=== PATIENT | male | born 1950 | race Caucasian/White ===

== ENCOUNTER → 2017-01-10 | Outpatient (CLI) | payer BC ==
[~2017-01-10] MED LIST: ASPI325T60 PO; B-CO-25; CRDCD120 PO; CYAN100T6 PO; DEXA1TAB16 PO; ENOX100I SC; METO50TA17 PO; MULT-599 PO; NIVO1INJ; NIVO1INJ IV; WARF5TAB7 PO; WARF5TAB90 PO; [UNRECOGNIZED DRUG - CODE]
--- NOTE | 2017-01-10 13:59 | DIAGNOSTIC IMAGING REPORT ---
CT OF THE CHEST WITH IV CONTRAST CLINICAL HISTORY: Esophageal carcinoma. Follow-up study. COMPARISON STUDY: 10/19/2016 TECHNIQUE: Following the IV administration of 92 mL of Optiray-320, CT of the thorax was performed from the thoracic inlet to the lung bases. Images are reviewed in the axial, sagittal, and coronal planes. IV contrast was administered without complication. CT DOSE: FINDINGS: Thyroid: Imaged portions of the thyroid gland are normal in appearance. Thoracic aorta: The thoracic aorta is normal in course and caliber, noting standard 3-vessel arch anatomy. No aneurysm or dissection is seen. Pulmonary vasculature: There is a small right lower lobe pulmonary artery filling defect, consistent with an embolus. This was not visualized the preceding study. HEART: There are mild coronary artery calcifications present. Lungs and pleural spaces: No pleural effusions are visualized. There are dependent atelectatic changes. There is no focal pulmonary consolidation. No suspicious pulmonary masses are visualized. Mediastinum: There is no pathologic adenopathy. There are postsurgical changes of the esophagectomy and gastric pull-up Idalmis: There is no evidence of pathologic hilar lymphadenopathy Axilla: Clear. Upper abdomen: There is a 16 mm right adrenal nodule. This was not visualized the prior study. Skeletal structures: There are no lytic or blastic osseous lesions. IMPRESSION: 1. Postsurgical changes of an esophagectomy and gastric pull-up 2. No evidence of pathologic adenopathy by size criteria 3. Interval development of a small right lower lobe pulmonary embolism 4. 16 mm right adrenal nodule 5. This report will be called due to the unexpected small right lower lobe pulmonary embolism Electronically signed by: Ld Lopes M.D. 01/10/2017 1:58 PM Dictated Date/Time: 01/10/2017 1:51 PM
--- NOTE | 2017-01-10 14:11 | DIAGNOSTIC IMAGING REPORT ---
CT SCAN OF THE ABDOMEN AND PELVIS WITH IV CONTRAST CLINICAL HISTORY: Esophageal cancer. COMPARISON STUDY: Abdominal CT dated 10/11/2016. TECHNIQUE: Following the IV administration of 92 cc of Optiray 320, CT scan of the abdomen and pelvis is performed from the lung bases to the proximal femora. Images are reviewed in the axial, sagittal, and coronal planes. IV contrast was administered without complication. Automated dose control exposure was utilized. CT DOSE: 988.57 mGy.cm FINDINGS: Lung bases: The heart is normal in size and there is a small pericardial effusion. There are coronary artery calcifications. Atelectasis is noted at the left lung base. No airspace consolidation is identified typical for pneumonia and there is no pleural effusion. Pulmonary embolus is identified within the right lower lobe pulmonary artery as seen on image #15. Liver: The contrast-enhanced liver is normal in size, contour, and attenuation. There is no intrahepatic biliary ductal dilatation. The hepatic veins and portal veins are patent. Gallbladder: Unremarkable. Spleen: Normal in size and attenuation. Pancreas: Atrophic and grossly unremarkable. Adrenal glands: A 1.4 cm right adrenal nodule is new from 10/19/2016. The left adrenal gland is normal in appearance. Kidneys: The contrast enhanced kidneys demonstrate mild cortical atrophy and are without hydronephrosis. The kidneys enhance symmetrically. Abdominal vasculature: The abdominal aorta is normal in course and caliber noting mild to moderate atherosclerotic calcification. Stomach and bowel: Postoperative change is seen at the gastroesophageal junction, likely related to esophagectomy with gastric pull-through. The duodenum is normal in configuration. The small bowel and colon are normal in course and caliber. There is mild to moderate colonic fecal retention. The appendix is not identified and reported surgically absent. Peritoneum: There is no intraperitoneal free air or abdominal ascites. There is a small fat-containing umbilical hernia. Lymphadenopathy: None. Pelvic viscera: The prostate gland is mildly enlarged measuring 5.8 cm transverse diameter. The bladder is normal as visualized. There are small bilateral fat-containing inguinal hernias. Skeletal structures: The skeletal structures appear osteopenic. There is mild lumbosacral spondylosis. No lytic or blastic lesions are seen. IMPRESSION: 1. There is an enlarging 1.4 cm right adrenal nodule as compared to 10/19/2016. This is concerning for an adrenal metastasis. 2. No additional foci of metastatic disease are suspected in the abdomen or pelvis. 3. Small pericardial effusion. 4. Postoperative change is seen at the esophageal hiatus, likely representing esophagectomy with gastric pull-through. 5. Pulmonary embolus is identified within the right lower lobe pulmonary artery. 6. Additional findings as above. Electronically signed by: Nolberto Crook M.D. 01/10/2017 2:10 PM Dictated Date/Time: 01/10/2017 1:57 PM
== END | disposition home or self-care (01) ==
LOC: C.CTS 11:31
PROVIDERS: ATTEND Nurse Practitioner Family
DX: C15.5 Malignant neoplasm of lower third of esophagus (principal); I26.99 Other pulmonary embolism without acute cor pulmonale; E27.9 Disorder of adrenal gland, unspecified; Z98.890 Other specified postprocedural states

== ENCOUNTER → 2017-03-16 | Outpatient (CLI) | payer BC ==
[~2017-03-16] MED LIST changes: -ASPI325T60 PO; -CRDCD120 PO; -CYAN100T6 PO; -DEXA1TAB16 PO; -ENOX100I SC; -METO50TA17 PO; +OPTIRAY 320 IV PRN
--- NOTE | 2017-03-16 12:32 | DIAGNOSTIC IMAGING REPORT ---
CHEST CT WITH CONTRAST CT DOSE: HISTORY: Esophageal cancer. TECHNIQUE: Multiaxial CT images of the chest were performed following the intravenous administration of contrast. COMPARISON: Chest CT 01/10/2017. FINDINGS: Patient is status post esophagectomy and gastric pull-up. There is a new small cluster of nodular densities within the right middle lobe. The dominant nodule measures 6 mm. The central airways are patent. No pleural effusions. No pneumothorax. No suspicious lytic or blastic osseous lesions. The heart is normal in size. Normal caliber thoracic aorta. Trace residual chronic embolus seen within the right lower lobe. No new pulmonary emboli identified within the central pulmonary arteries. There are few mediastinal lymph nodes which have increased in size. Upper right peritracheal lymph node measures 9 mm, previously measuring 6 mm. Upper left paratracheal lymph node measures 12 mm, previous measuring 8 mm. And 11 mm left retrohilar lymph node adjacent to multiple surgical clips previously measured 5 mm. IMPRESSION: 1. Increase in size in a few mediastinal lymph nodes as described above. This is concerning for metastatic disease. 2. Esophagectomy with gastric pull-up is again noted. 3. A small cluster of nodular densities within the right middle lobe. These favor a focus of inflammatory/infectious change. However, short-term chest CT follow up is recommended to ensure resolution. 4. Near complete resolution of a chronic right lower lobe pulmonary embolus. Electronically signed by: Beny Quiroga M.D. 03/16/2017 12:30 PM Dictated Date/Time: 03/16/2017 12:22 PM
--- NOTE | 2017-03-16 12:43 | DIAGNOSTIC IMAGING REPORT ---
CT OF THE ABDOMEN AND PELVIS WITH CONTRAST CLINICAL HISTORY: Esophageal cancer. COMPARISON STUDY: CT of the abdomen and pelvis January 10, 2017 and PET/CT February 29, 2016. TECHNIQUE: Following IV administration of 117 mL of Optiray-320, axial images of the abdomen and pelvis were obtained from the lung bases to the proximal femurs. Images were reviewed in the axial, sagittal, and coronal planes. IV contrast was administered without complication. Oral contrast was administered. CT DOSE: 798.18 mGy.cm FINDINGS: The chest will be reported separately. A 4.5 x 2.5 x 2.5 cm right adrenal mass has significantly increased in size since CT of January 10, 2017 when it measured 2.9 x 1.5 x 1.4 cm. There is no left adrenal mass. The spleen, adrenal glands, kidneys and pancreas are unremarkable. There are post surgical findings consistent with an esophagectomy with gastric pull-up. There is no evidence for a bowel obstruction. A small amount of fluid within the pelvis is noted. No suspicious osseous lesions are identified. IMPRESSION: 1. Significant increase in size of a 4.5 x 2.5 x 2.5 cm right adrenal lesion consistent with metastatic disease. 2. Small amount of fluid within the pelvis. Electronically signed by: Celestino Maciel M.D. 03/16/2017 12:42 PM Dictated Date/Time: 03/16/2017 12:33 PM
== END | disposition home or self-care (01) ==
LOC: C.CTS 10:02
PROVIDERS: ATTEND Nurse Practitioner Family
DX: C15.5 Malignant neoplasm of lower third of esophagus (principal); E27.9 Disorder of adrenal gland, unspecified; R91.8 Other nonspecific abnormal finding of lung field

== ENCOUNTER → 2017-03-27 | Outpatient (CLI) | payer BC ==
[~2017-03-27] MED LIST changes: -OPTIRAY 320 IV PRN
--- NOTE | 2017-03-27 16:02 | DIAGNOSTIC IMAGING REPORT ---
PET/CT CLINICAL HISTORY: Esophageal cancer. TECHNIQUE: A PET/CT was performed from the skull base through the upper thighs following intravenous injection of 14.8 mCi of F 18 FDG IV. The injection was performed at 9:35 AM on March 27, 2017 and imaging began at 10:59 AM on March 27, 2017. Unenhanced CT was performed for attenuation correction purposes and anatomic localization. COMPARISON STUDY: PET/CT February 29, [address] of the chest, abdomen and pelvis March 14, 2017. FINDINGS: Head and neck: Note is made of a 3.2 x 2.3 cm right supraclavicular lymph node which demonstrates marked FDG uptake with an SUV max of 10.6. This is new since PET/CT of February 29, 2016. No additional sites of suspicious FDG uptake are identified within the neck. Chest: There are postsurgical findings consistent with a esophagectomy with gastric pull-up. A 1 cm right paratracheal lymph node shown on image 77 has increased in size since prior PET/CT and gas moderate FDG uptake with an SUV max of 6.2. A 1.1 cm left posterior hilar lymph nodes on image 98 is increased since prior PET/CT and has an SUV max of 9.9. A small focus of soft tissue thickening posterior to the trachea shown image 84 has marked FDG uptake with an SUV max of 9.4. A few smaller foci of FDG uptake within the mediastinum or noted. Minimal right middle lobe opacities likely are infectious in etiology. Abdomen and Pelvis: There is marked FDG uptake within the 4 x 2.6 x 2.9 cm right adrenal metastasis with an SUV max of 10.4. This is new since PET/CT of February 29, [address] of January 10, 2017. There are no additional suspicious finding is within the abdomen or the pelvis. Musculoskeletal: No suspicious skeletal uptake is identified. IMPRESSION: Findings consistent with progression of metastatic disease, including right supraclavicular, mediastinal and left hilar FDG avid lymphadenopathy as well as a right adrenal metastasis. These findings have moderately progressed since CT of January 10, 2017. Electronically signed by: Celestino Maciel M.D. 03/27/2017 4:01 PM Dictated Date/Time: 03/27/2017 12:26 PM
== END | disposition home or self-care (01) ==
LOC: C.PET 08:43
PROVIDERS: ATTEND Nurse Practitioner Family
DX: C15.5 Malignant neoplasm of lower third of esophagus (principal)